=== PATIENT | female | born 1965 | race Caucasian/White ===

== ENCOUNTER 2018-06-09 16:54 | Emergency (ER) | payer SELFPAY ==
--- NOTE | 2018-06-09 18:50 | RAD REPORT ---
EXAM DESCRIPTION: CT - Head Brain Wo Cont - 06/09/2018 6:30 pm CLINICAL HISTORY: Fall, head trauma COMPARISON: None. TECHNIQUE: Axial 5 mm thick images of the head were obtained without IV contrast. All CT scans are performed using dose optimization technique as appropriate and may include automated exposure control or mA/KV adjustment according to patient size. FINDINGS: No intracranial hemorrhage, mass, edema or shift of mid-line structures. No acute infarcti on changes seen. No abnormal extra-axial fluid collections. Ventricles are normal. Arterial and physi ologic calcifications are present. Mastoid air cells and visualized portions of the paranasal sinuses are clear. No acute bony findings. IMPRESSION: Negative non-contrast CT head examination for acute or significant finding.
--- NOTE | 2018-06-09 19:16 | RAD REPORT ---
EXAM DESCRIPTION: Shoulder Right 2 View - 06/09/2018 6:37 pm CLINICAL HISTORY: Trip and fall, shoulder pain COMPARISON: None. TECHNIQUE: Internal and external rotation views of the right shoulder were obtained. FINDINGS: No fracture or dislocation of the humeral head. Degenerative changes seen along the supero lateral aspect of the humeral head the greater tuberosity. Mild degenerative changes are present at t he undersurface of the acromion with lateral downward tilting. This narrows the lateral aspect of the acromial humeral joint space. No spurring at the AC joint. No abnormal soft tissue calcification. No acute or suspicious findings. IMPRESSION: Humeral head and acromion degenerative change as detailed. No acute finding.
--- NOTE | 2018-06-09 19:17 | RAD REPORT ---
EXAM DESCRIPTION: RAD - Elbow Right 3 View - 06/09/2018 6:37 pm CLINICAL HISTORY: Trip and fall, elbow pain COMPARISON: None. FINDINGS: No fracture is identified and no elevated posterior fat pad. There is no dislocation or pe riosteal reaction noted. No foreign body or other soft tissue abnormality. No other significant findi ng. IMPRESSION: Negative right elbow examination.
--- NOTE | 2018-06-09 19:37 | EDPHYS ---
Physician Documentation [facility] Name: Blank Sheikh Age: 53 yrs Sex: Female : 1965 Arrival Date: 06/09/2018 Time: 16:57 Bed 18 Private MD: None, None ED Physician Olivier Green HPI: 06/09 19:00 This 53 yrs old Female presents to ER via Ambulatory with complaints of Fall pm1 Injury. 19:00 Details of fall: The patient fell from an upright position, while standing. Onset: The pm1 symptoms/episode began/occurred last night. Associated injuries: The patient sustained right elbow, Pain, anterior aspect of right shoulder, Pain. Severity of symptoms: in the emergency department the symptoms are unchanged. The patient has not experienced similar symptoms in the past. The patient has not recently seen a physician. Patient was walking last night and tripped on a crack in the sidewalk. Landed on right knee and then landed on her right elbow and right shoulder. Abrasion to right elbow and right knee. Patient with no difficulty walking and right knee does not hurt. Presenting with pain to right elbow and right shoulder. Patient reports headache since fall, but denies hitting her head. No neck pain. No LOC, nausea or vomiting. Historical: - Allergies: 17:06 NKA; iw - Home Meds: 17:06 None [Active]; iw - PMHx: 17:06 Hypertension; iw - PSHx: 17:06 ; Cholecystectomy; iw - Immunization history:: Adult Immunizations not up to date. - Social history:: Smoking status: Patient uses tobacco products, smokes one-half pack cigarettes per day. - Ebola Screening: : Patient negative for fever greater than or equal to 101.5 degrees Fahrenheit, and additional compatible Ebola Virus Disease symptoms Patient denies exposure to infectious person Patient denies travel to an Ebola-affected area in the 21 days before illness onset No symptoms or risks identified at this time. ROS: 19:00 Constitutional: Negative for fever, chills, and weight loss, Eyes: Negative for injury, pm1 pain, redness, and discharge, ENT: Negative for injury, pain, and discharge, Neck: Negative for injury, pain, and swelling, Cardiovascular: Negative for chest pain, palpitations, and edema, Respiratory: Negative for shortness of breath, cough, wheezing, and pleuritic chest pain, Abdomen/GI: Negative for abdominal pain, nausea, vomiting, diarrhea, and constipation, Back: Negative for injury and pain. 19:00 : Negative for injury, bleeding, discharge, and swelling. 19:00 MS/extremity: Positive for pain, of the anterior aspect of right shoulder and right elbow. 19:00 Skin: Positive for abrasion(s), Negative for laceration(s), swelling. 19:00 Neuro: Positive for headache, Negative for altered mental status, dizziness. Exam: 19:00 Constitutional: This is a well developed, well nourished patient who is awake, alert, pm1 and in no acute distress. Head/Face: Normocephalic, atraumatic. Eyes: Pupils equal round and reactive to light, extra-ocular motions intact. Lids and lashes normal. Conjunctiva and sclera are non-icteric and not injected. Cornea within normal limits. Periorbital areas with no swelling, redness, or edema. ENT: Nares patent. No nasal discharge, no septal abnormalities noted. Tympanic membranes are normal and external auditory canals are clear. Oropharynx with no redness, swelling, or masses, exudates, or evidence of obstruction, uvula midline. Mucous membranes moist. Neck: Trachea midline, no thyromegaly or masses palpated, and no cervical lymphadenopathy. Supple, full range of motion without nuchal rigidity, or vertebral point tenderness. No Meningismus. Chest/axilla: Normal chest wall appearance and motion. Nontender with no deformity. No lesions are appreciated. Cardiovascular: Regular rate and rhythm with a normal S1 and S2. No gallops, murmurs, or rubs. No pulse deficits. Respiratory: Lungs have equal breath sounds bilaterally, clear to auscultation and percussion. No rales, rhonchi or wheezes noted. No increased work of breathing, no retractions or nasal flaring. Abdomen/GI: Soft, non-tender, with normal bowel sounds. No distension or tympany. No guarding or rebound. No evidence of tenderness throughout. Back: No spinal tenderness. No costovertebral tenderness. Full range of motion. 19:00 Skin: Warm, dry with normal turgor. Normal color with no rashes, no lesions, and no evidence of cellulitis. 19:00 Musculoskeletal/extremity: Extremities: grossly normal except: noted in the right knee: abrasion, There is no evidence of decreased ROM, deformity, pain, tenderness, noted in the right elbow: abrasion, tenderness, no evidence of decreased ROM, deformity, noted in the anterior aspect of right shoulder: tenderness, no evidence of decreased ROM, deformity. 19:00 Neuro: Orientation: is normal, Cranial nerves: CN II- XII are normal as tested, Cerebellar function: normal finger to nose testing, Motor: moves all fours, Sensation: is normal, no obvious gross deficits, Gait: is steady, at a normal pace, without difficulty. Vital Signs: 17:06 BP 156 / 90; Pulse 76; Resp 18 S; Temp 97.7; Pulse Ox 97% on R/A; Weight 63.5 kg; iw Height 4 ft. 11 in. (149.86 cm); Pain 8/10; 18:09 BP 155 / 94; Pulse 75; Resp 18; Pulse Ox 99% on R/A; hj 19:35 BP 176 / 83; Pulse 76; Resp 18; Pulse Ox 98% on R/A; mt 17:06 Body Mass Index 28.28 (63.50 kg, 149.86 cm) iw MDM: 17:07 Patient medically screened. pm1 19:35 Data reviewed: vital signs. Data interpreted: Pulse oximetry: on room air is 98 %. pm1 Interpretation: normal. Counseling: I had a detailed discussion with the patient and/or guardian regarding: the historical points, exam findings, and any diagnostic results supporting the discharge/admit diagnosis, radiology results, the need for outpatient follow up, to return to the emergency department if symptoms worsen or persist or if there are any questions or concerns that arise at home. 06/09 17:15 Order name: Elbow Right 3 View XRAY; Complete Time: 19:23 pm1 06/09 17:15 Order name: Shoulder Right (2 View) XRAY; Complete Time: 19:23 pm1 06/09 17:15 Order name: CT Head Brain wo Cont; Complete Time: 18:53 pm1 06/09 19:23 Order name: Sling; Complete Time: 19:34 pm1 Administered Medications: No medications were administered Disposition: 06/10 07:18 Co-signature as Attending Physician, Olivier Green MD. rn Disposition: 10/17/18 19:37 Discharged to Home. Impression: Unspecified sprain of right shoulder joint, Contusion of right elbow. - Condition is Stable. - Discharge Instructions: Elbow Contusion, Shoulder Sprain, How to Use a Sling. - Prescriptions for Tramadol 50 mg Oral Tablet - take 1 tablet by ORAL route every 8 hours as needed; 12 tablet. - Medication Reconciliation Form, Thank You Letter, Antibiotic Education, Prescription Opioid Use, Work release form form. - Follow up: Emergency Department; When: As needed; Reason: Worsening of condition. Follow up: Rafael Flynn MD; When: 2 - 3 days; Reason: Recheck today's complaints, Continuance of care, Re-evaluation by your physician. - Problem is new. - Symptoms have improved. Signatures: Dispatcher [employer] EDMS Azul Graham RN RN iw Nieto, Roman, MD MD rn Marinas, Patrick, EMILIE [employer]PLANE CHARTER CLERK pm1 Yoon Roy RN RN ea Corrections: (The following items were deleted from the chart) 06/09 19:37 19:37 06/09/2018 19:37 Discharged to Home. Impression: Other sprain of right elbow; pm1 Unspecified sprain of right shoulder joint. Condition is Stable. Forms are Medication Reconciliation Form, Thank You Letter, Antibiotic Education, Prescription Opioid Use. Follow up: Emergency Department; When: As needed; Reason: Worsening of condition. Follow up: Rafael Flynn; When: 2 - 3 days; Reason: Recheck today's complaints, Continuance of care, Re-evaluation by your physician. Problem is new. Symptoms have improved. pm1 20:11 19:37 06/09/2018 19:37 Discharged to Home. Impression: Unspecified sprain of right ea shoulder joint; Contusion of right elbow. Condition is Stable. Forms are Medication Reconciliation Form, Thank You Letter, Antibiotic Education, Prescription Opioid Use. Follow up: Emergency Department; When: As needed; Reason: Worsening of condition. Follow up: Rafael Flynn; When: 2 - 3 days; Reason: Recheck today's complaints, Continuance of care, Re-evaluation by your physician. Problem is new. Symptoms have improved. pm1
--- NOTE | 2018-06-09 19:37 | ER ---
Nurse's Notes [facility] Name: Blank Sheikh Age: 53 yrs Sex: Female : 1965 Arrival Date: 06/09/2018 Time: 16:57 Bed 18 Private MD: None, None Diagnosis: Unspecified sprain of right shoulder joint;Contusion of right elbow Presentation: 06/09 17:03 Presenting complaint: Patient states: pt tripped and fell while walking on sidewalk iw last night, fell to right side, c/o pain to right arm, elbow, and shoulder. Care prior to arrival: None. 17:03 Acuity: THOMAS 4 iw 17:03 Method Of Arrival: Ambulatory iw 17:03 Transition of care: patient was not received from another setting of care. Onset of hj symptoms was June 08, 2018. Risk Assessment: Do you want to hurt yourself or someone else? Patient reports no desire to harm self or others. Initial Sepsis Screen: Does the patient meet any 2 criteria? No. Patient's initial sepsis screen is negative. Does the patient have a suspected source of infection? No. Patient's initial sepsis screen is negative. Triage Assessment: 17:08 General: Appears in no apparent distress. uncomfortable, Behavior is calm, cooperative, hj appropriate for age. Pain:. Historical: - Allergies: 17:06 NKA; iw - Home Meds: 17:06 None [Active]; iw - PMHx: 17:06 Hypertension; iw - PSHx: 17:06 ; Cholecystectomy; iw - Immunization history:: Adult Immunizations not up to date. - Social history:: Smoking status: Patient uses tobacco products, smokes one-half pack cigarettes per day. - Ebola Screening: : Patient negative for fever greater than or equal to 101.5 degrees Fahrenheit, and additional compatible Ebola Virus Disease symptoms Patient denies exposure to infectious person Patient denies travel to an Ebola-affected area in the 21 days before illness onset No symptoms or risks identified at this time. Screenin:06 Abuse screen: Denies threats or abuse. Denies injuries from another. Nutritional hj screening: No deficits noted. Tuberculosis screening: No symptoms or risk factors identified. Fall Risk Fall in past 12 months (25 points). Assessment: 17:09 General: Appears in no apparent distress. uncomfortable, obese, Behavior is calm, hj cooperative, appropriate for age. Pain: Complains of pain in R side, R elbow, R arm, R shoulder. Neuro: Level of Consciousness is awake, alert, obeys commands, Oriented to person, place, time, situation, Appropriate for age. Cardiovascular: Capillary refill < 3 seconds Patient's skin is warm and dry. Respiratory: Airway is patent Respiratory effort is even, unlabored, Respiratory pattern is regular, symmetrical. GI: No signs and/or symptoms were reported involving the gastrointestinal system. : No signs and/or symptoms were reported regarding the genitourinary system. EENT: No signs and/or symptoms were reported regarding the EENT system. Derm: No signs and/or symptoms reported regarding the dermatologic system. Musculoskeletal: Reports pain in R side, R arm, R elbow, R shoulder. 18:09 Reassessment: awaiting XRAY; denies need for pain meds;. hj 18:17 Reassessment: xray taken in room;. hj 19:22 General: Appears in no apparent distress. Behavior is calm, cooperative, appropriate ea for age. Pain: Complains of pain in Headache Pain currently is 4 out of 10 on a pain scale. Neuro: Level of Consciousness is awake, alert, obeys commands, Oriented to person, place, time, situation. Cardiovascular: Heart tones S1 S2 present Patient's skin is warm and dry. Respiratory: Airway is patent Respiratory effort is even, unlabored, Respiratory pattern is regular, symmetrical, Breath sounds are clear bilaterally. GI: No signs and/or symptoms were reported involving the gastrointestinal system. : No signs and/or symptoms were reported regarding the genitourinary system. Derm: Skin is pink, warm \T\ dry. Musculoskeletal: Reports pain in right arm, shoulder and right elbow Pain is 5 out of 10 on a pain scale. 19:58 Reassessment: Patient and/or family updated on plan of care and expected duration. Pain ea level reassessed. Patient is alert, oriented x 3, equal unlabored respirations, skin warm/dry/pink. Discharge instructions given to patient, verbalized the understanding of instruction. Patient states feeling better. Vital Signs: 17:06 BP 156 / 90; Pulse 76; Resp 18 S; Temp 97.7; Pulse Ox 97% on R/A; Weight 63.5 kg; iw Height 4 ft. 11 in. (149.86 cm); Pain 8/10; 18:09 BP 155 / 94; Pulse 75; Resp 18; Pulse Ox 99% on R/A; hj 19:35 BP 176 / 83; Pulse 76; Resp 18; Pulse Ox 98% on R/A; mt 17:06 Body Mass Index 28.28 (63.50 kg, 149.86 cm) ED Course: 16:57 Patient arrived in ED. mr 16:57 None, None is Private Physician. mr 16:58 Wil Null, RN is Primary Nurse. hj 17:04 Triage completed. iw 17:06 Arm band placed on. iw 17:07 Ken Shoemaker, EMILIE is PHCP. pm1 17:07 Olivier Green MD is Attending Physician. pm1 17:09 Patient has correct armband on for positive identification. Bed in low position. Call light in reach. Side rails up X 1. 18:31 CT Head Brain wo Cont In Process Unspecified. EDMS 18:32 CT completed. Patient tolerated procedure well. Patient moved to CT. Patient moved back nj from CT. 18:37 Elbow Right 3 View XRAY In Process Unspecified. EDMS 18:37 Shoulder Right (2 View) XRAY In Process Unspecified. EDMS 19:36 Rafael Flynn MD is Referral Physician. pm1 19:50 Sling applied to right arm. ea 20:08 No provider procedures requiring assistance completed. Patient did not have IV access ea during this emergency room visit. Administered Medications: No medications were administered Outcome: 19:37 Discharge ordered by MD. pm1 20:09 Discharged to home ambulatory. ea 20:09 Condition: improved 20:09 Discharge instructions given to patient, Instructed on discharge instructions, follow up and referral plans. medication usage, Demonstrated understanding of instructions, follow-up care, medications, Prescriptions given X 1. 20:11 Patient left the ED. ea Signatures: Dispatcher [employer] EDTN Darrell Emily Azul Bryant RN RN Wil Null, MARTINEZ HENRIQUEZ Ken Shoemaker, EMILIE SHOT HOLE DRILLER pm1 Danish Harper Moriah id Yoon Roy RN RN ea
== END 2018-06-09 20:11 | disposition home or self-care (01) ==
LOC: ER 16:54
DX: S43.401A Unspecified sprain of right shoulder joint, initial encounter (principal); S50.01XA Contusion of right elbow, initial encounter; W01.0XXA Fall on same level from slipping, tripping and stumbling without subsequent striking against object, initial encounter; Y93.01 Activity, walking, marching and hiking; Y92.480 Sidewalk as the place of occurrence of the external cause; I10 Essential (primary) hypertension
CPT/HCPCS: 70450; 99284